=== PATIENT | male | born 2000 | race Hispanic/Latino ===

== ENCOUNTER 2021-08-16 17:44 | Emergency (ER) | payer SELFPAY ==
--- NOTE | 2021-08-16 19:13 | ER ---
Nurse's Notes [facility] Name: Anish López Age: 20 yrs Sex: Male : 2000 Arrival Date: 08/16/2021 Time: 17:45 Bed Waiting Private MD: Diagnosis: Acute tonsillitis, unspecified Presentation: 08/16 17:58 Chief complaint: Patient states: since lunch feeling weak and tired. denies vomiting. ss feels nauseous. Coronavirus screen: Vaccine status: Patient reports being unvaccinated. Client denies travel out of the [place] in the last 14 days. Ebola Screen: Patient negative for fever greater than or equal to 101.5 degrees Fahrenheit, and additional compatible Ebola Virus Disease symptoms Patient denies exposure to infectious person. Patient denies travel to an Ebola-affected area in the 21 days before illness onset. Initial Sepsis Screen: Does the patient meet any 2 criteria? HR > 90 bpm. Does the patient have a suspected source of infection? No. Patient's initial sepsis screen is negative. Risk Assessment: Do you want to hurt yourself or someone else? Patient reports no desire to harm self or others. Onset of symptoms was August 12, 2021. 17:58 Method Of Arrival: Ambulatory ss 17:58 Acuity: ELIUD 3 ss Triage Assessment: 18:03 General: Appears in no apparent distress. uncomfortable, well groomed, well developed, ss well nourished, Behavior is calm, cooperative, appropriate for age. Pain: Complains of pain in Throat. Historical: - Allergies: 18:01 No Known Allergies; ss - Immunization history:: Adult Immunizations up to date. - Social history:: Smoking status: Patient denies any tobacco usage or history of. Screenin:03 Abuse screen: Denies threats or abuse. Denies injuries from another. Nutritional ss screening: No deficits noted. Tuberculosis screening: No symptoms or risk factors identified. Fall Risk None identified. Assessment: 19:26 Reassessment: Patient appears in no apparent distress at this time. No changes from tw5 previously documented assessment. Vital Signs: 17:58 BP 145 / 75; Pulse 114; Resp 18; Temp 99.5; Pulse Ox 99% ; Weight 122.47 kg; Height 6 ss ft. 1 in. (185.42 cm); 17:58 Body Mass Index 35.62 (122.47 kg, 185.42 cm) ED Course: 17:45 Patient arrived in ED. mr 18:01 Triage completed. ss 18:05 Satinder Kidd PA is PHCP. cp 18:05 Conrad Carlson MD is Attending Physician. cp 19:26 Marcelina An is Primary Nurse. tw5 19:26 Patient has correct armband on for positive identification. tw5 19:26 No provider procedures requiring assistance completed. Patient did not have IV access tw5 during this emergency room visit. 19:29 Throat Culture Sent. tw5 19:31 Arm band placed on. tw5 Administered Medications: 19:30 Drug: Augmentin (Amoxicillin-Clavulanate) 875 mg Route: PO; tw5 19:30 Follow up: Response: Medication administered at discharge. tw5 Outcome: 19:13 Discharge ordered by . cp 19:26 Discharged to home tw5 19:26 Condition: good 19:26 Discharge instructions given to patient, Instructed on discharge instructions, follow up and referral plans. Demonstrated understanding of instructions, follow-up care, medications, Prescriptions given X 1. 19:31 Patient left the ED. tw5 Signatures: Isamar MiJoycelyn, RN RN Satinder Kidd PA PA cp Marcelina An tw5
--- NOTE | 2021-08-16 19:13 | EDPHYS ---
Physician Documentation [facility] Name: Anish López Age: 20 yrs Sex: Male : 2000 Arrival Date: 08/16/2021 Time: 17:45 Bed Waiting Private MD: ED Physician Conrad Carlson HPI: 08/16 18:05 This 20 yrs old Male presents to ER via Ambulatory with complaints of Sore cp Throat. 18:05 The patient presents with sore throat. Onset: The symptoms/episode began/occurred 3 cp day(s) ago. Associated signs and symptoms: Pertinent positives: slight cough, Pertinent negatives diarrhea, fever, vomiting. Historical: - Allergies: 18:01 No Known Allergies; ss - Immunization history:: Adult Immunizations up to date. - Social history:: Smoking status: Patient denies any tobacco usage or history of. ROS: 18:06 Eyes: Negative for injury, pain, redness, and discharge. cp 18:06 Constitutional: Negative for body aches, fever, poor PO intake. 18:06 ENT: Positive for sore throat, Negative for drainage from ear(s), ear pain, difficulty swallowing, difficulty handling secretions. 18:06 Respiratory: Positive for slight cough, Negative for shortness of breath, wheezing. 18:06 Abdomen/GI: Negative for vomiting, diarrhea, constipation. 18:06 Neuro: Negative for altered mental status, headache. 18:06 All other systems are negative. Exam: 18:08 Head/Face: Normocephalic, atraumatic. cp 18:08 Constitutional: The patient appears in no acute distress, alert, awake, non-toxic, well developed, well nourished. 18:08 Eyes: Periorbital structures: appear normal, Conjunctiva: normal, no exudate, no injection, Lids and lashes: appear normal, bilaterally. 18:08 ENT: External ear(s): are unremarkable, Ear canal(s): are normal, clear, TM's: dullness, bilaterally, Nose: is normal, Mouth: Lips: moist, Oral mucosa: moist, Posterior pharynx: Airway: no evidence of obstruction, patent, Tonsils: bilaterally enlarged, with erythema, Uvula: midline, erythema, that is mild. 18:08 Neck: ROM/movement: is normal, is supple, no meningismus, no nuchal rigidity. 18:08 Chest/axilla: Inspection: normal. 18:08 Cardiovascular: Rate: tachycardic. 18:08 Respiratory: the patient does not display signs of respiratory distress, Respirations: normal, no use of accessory muscles, no retractions, labored breathing, is not present, Breath sounds: are clear throughout, no decreased breath sounds, no stridor, no wheezing. Vital Signs: 17:58 BP 145 / 75; Pulse 114; Resp 18; Temp 99.5; Pulse Ox 99% ; Weight 122.47 kg; Height 6 ss ft. 1 in. (185.42 cm); 17:58 Body Mass Index 35.62 (122.47 kg, 185.42 cm) ss MDM: 19:13 Patient medically screened. cp 19:13 Differential diagnosis: group A strep tonsillitis, peritonsillar abscess cp retropharyngeal abcess tonsillitis, uvulitis. 19:13 Data reviewed: vital signs, nurses notes, lab test result(s). Counseling: I had a cp detailed discussion with the patient and/or guardian regarding: the historical points, exam findings, and any diagnostic results supporting the discharge/admit diagnosis, lab results, to return to the emergency department if symptoms worsen or persist or if there are any questions or concerns that arise at home. 08/16 18:07 Order name: Strep ss 08/16 18:36 Order name: Throat Culture EDMS Administered Medications: 19:30 Drug: Augmentin (Amoxicillin-Clavulanate) 875 mg Route: PO; tw5 19:30 Follow up: Response: Medication administered at discharge. tw5 Disposition Summary: 08/16/21 19:13 Discharge Ordered Location: Home cp Problem: new cp Symptoms: are unchanged cp Condition: Stable cp Diagnosis - Acute tonsillitis, unspecified cp Followup: cp - With: Private Physician - When: 2 - 3 days - Reason: Worsening of condition Discharge Instructions: - Discharge Summary Sheet cp - Tonsillitis cp Forms: - Medication Reconciliation Form cp - Thank You Letter cp - Antibiotic Education cp - Prescription Opioid Use cp Prescriptions: - Augmentin 875-125 mg Oral Tablet - take 1 tablet by ORAL route every 12 hours for 10 days; 20 tablet; Refills: 0, cp Product Selection Permitted Addendum: 08/18/2021 18:52 Co-signature as Attending Physician, Conrad snyder a2 Signatures: Dispatcher [employer] Joycelyn Delcid, HIMANSHU RN Satinder Gutierrez PA PA cp Alzahri, Mohammad, MD MD [facility] Marcelina An tw5
[2021-08-16] MEDS ORDERED: AMOX/K CLAV 875 MG TAB ONE (19:30)
[2021-08-16 19:36] VITALS: BP 145/75; TEMP 99.5; O2SAT 99
== END 2021-08-16 19:31 | disposition home or self-care (01) ==
LOC: ER 17:44
DX: J03.90 Acute tonsillitis, unspecified (principal)
CPT/HCPCS: 87070; 87081; 99283